=== PATIENT | male | born 1995 | race Caucasian/White ===

== ENCOUNTER 2022-08-07 12:28 | Emergency (ER) | payer MEDICAID ==
[~2022-08-07] VITALS: Ht 167.6 cm; Wt 83.5 kg
[2022-08-07 13:00] VITALS: BP 134/81
--- NOTE | 2022-08-07 13:30 | NUR ---
Suture removal per ER provider.
--- NOTE | 2022-08-07 14:00 | NUR ---
Patient discharged to home in stable condition. Written and verbal after care instructions given. Patient verbalizes understanding of instruction.
== END 2022-08-07 15:04 | disposition home or self-care (01) ==
LOC: ER 12:32
DX: Z48.02 Encounter for removal of sutures (principal)